=== PATIENT | male | born 1965 | race Caucasian/White ===

== ENCOUNTER 2018-07-21 16:46 | Outpatient (CLI) | payer OTHER ==
[~2018-07-21 16:46] MED LIST: GILTUSS TR TAB1 EACH PO; TOBREX5 ML OP; ZITHROMAX TRI-500 MG PO; ZYRTEC10 MG PO
== END 2018-07-21 17:12 | disposition home or self-care (01) ==
LOC: LAB 16:46
DX: E11.9 Type 2 diabetes mellitus without complications (principal); E03.8 Other specified hypothyroidism; E78.2 Mixed hyperlipidemia; R31.9 Hematuria, unspecified; N20.0 Calculus of kidney; N30.00 Acute cystitis without hematuria; E29.1 Testicular hypofunction; R97.20 Elevated prostate specific antigen [PSA]

== ENCOUNTER → 2018-07-22 | Outpatient (CLI) | payer OTHER | END | disposition home or self-care (01) | LOC: MRI 09:00 | DX: G43.909 Migraine, unspecified, not intractable, without status migrainosus (principal); R41.2 Retrograde amnesia; N20.0 Calculus of kidney | CPT/HCPCS: 70551 ==

== ENCOUNTER → 2018-08-05 | Outpatient (CLI) | payer OTHER | END | disposition home or self-care (01) | LOC: NUCLEAR 09:00 | DX: I10 Essential (primary) hypertension (principal); R94.31 Abnormal electrocardiogram [ECG] [EKG]; R07.89 Other chest pain ==

== ENCOUNTER 2018-08-15 08:04 | Outpatient (CLI) | payer OTHER | END 2018-08-15 08:12 | disposition home or self-care (01) | LOC: NUCLEAR 08:04 | DX: I10 Essential (primary) hypertension (principal); I25.10 Atherosclerotic heart disease of native coronary artery without angina pectoris | CPT/HCPCS: 78452; 93017; A9500 ==

== ENCOUNTER 2018-08-22 12:27 | Day surgery (SDC) | payer OTHER ==
[2018-08-24] MEDS ORDERED: TRAMADOL HCL50 MG PO (02:15)
== END 2018-08-22 16:45 | disposition home or self-care (01) ==
LOC: CIR LITO 12:27
DX: N20.1 Calculus of ureter (principal)

== ENCOUNTER → 2018-08-23 | Emergency (ER) | payer OTHER ==
[~2018-08-23] VITALS: Ht 175.3 cm; Wt 87.5 kg
[~2018-08-23] MED LIST changes: +TRAMADOL HCL50 MG PO
== END | disposition home or self-care (01) ==
LOC: ER 19:16
DX: N23 Unspecified renal colic (principal)

== ENCOUNTER 2018-09-01 07:42 | Outpatient (CLI) | payer OTHER | END 2018-09-01 07:47 | disposition home or self-care (01) | LOC: RAD 07:42 | DX: N20.0 Calculus of kidney (principal) ==

== ENCOUNTER 2018-09-01 08:55 | Day surgery (SDC) | payer OTHER | END 2018-09-01 16:05 | disposition home or self-care (01) | LOC: CIR.AMB 08:55 | DX: N20.1 Calculus of ureter (principal) ==

== ENCOUNTER 2018-11-07 07:53 | Outpatient (CLI) | payer OTHER | END 2018-11-07 08:08 | disposition home or self-care (01) | LOC: SONOGRAMA 07:53 | DX: E04.1 Nontoxic single thyroid nodule (principal) ==

== ENCOUNTER → 2019-01-19 | Outpatient (CLI) | payer OTHER | END | disposition home or self-care (01) | LOC: SONOGRAMA 14:26 | DX: S74.02XA Injury of sciatic nerve at hip and thigh level, left leg, initial encounter (principal) ==

== ENCOUNTER 2019-10-27 16:42 | Outpatient (CLI) | payer OTHER | END 2019-10-27 17:11 | disposition home or self-care (01) | LOC: LAB 16:42 | DX: N20.0 Calculus of kidney (principal); R97.20 Elevated prostate specific antigen [PSA]; I10 Essential (primary) hypertension; E11.9 Type 2 diabetes mellitus without complications; E03.8 Other specified hypothyroidism; E78.2 Mixed hyperlipidemia; M81.0 Age-related osteoporosis without current pathological fracture; N40.0 Benign prostatic hyperplasia without lower urinary tract symptoms ==

== ENCOUNTER 2019-10-28 14:53 | Outpatient (CLI) | payer OTHER | END 2019-10-28 16:09 | disposition home or self-care (01) | LOC: SONOGRAMA 14:53 | DX: R97.20 Elevated prostate specific antigen [PSA] (principal); N20.0 Calculus of kidney ==

== ENCOUNTER 2021-01-20 08:00 | Outpatient (CLI) | payer OTHER | END 2021-01-20 15:00 | disposition home or self-care (01) | LOC: LAB 08:00 | PROVIDERS: ATTEND Urology | DX: N20.0 Calculus of kidney (principal); E29.1 Testicular hypofunction; R97.20 Elevated prostate specific antigen [PSA]; Z00.8 Encounter for other general examination; Z12.5 Encounter for screening for malignant neoplasm of prostate; N52.8 Other male erectile dysfunction; R03.0 Elevated blood-pressure reading, without diagnosis of hypertension; E66.8 Other obesity; E55.9 Vitamin D deficiency, unspecified ==

== ENCOUNTER 2021-01-24 14:44 | Outpatient (CLI) | payer OTHER | END 2021-01-24 15:24 | disposition home or self-care (01) | LOC: RAD 14:44 | PROVIDERS: ATTEND Urology | DX: N20.0 Calculus of kidney (principal); R31.1 Benign essential microscopic hematuria ==

== ENCOUNTER → 2022-04-06 15:21 | Outpatient (CLI) | payer OTHER | END | disposition home or self-care (01) | LOC: LAB 04-05 16:10 | PROVIDERS: ATTEND Internal Medicine Cardiovascular Disease | DX: I10 Essential (primary) hypertension (principal); E11.9 Type 2 diabetes mellitus without complications; E03.9 Hypothyroidism, unspecified; E78.2 Mixed hyperlipidemia; E55.9 Vitamin D deficiency, unspecified; N40.0 Benign prostatic hyperplasia without lower urinary tract symptoms; N20.0 Calculus of kidney; R97.20 Elevated prostate specific antigen [PSA]; R31.1 Benign essential microscopic hematuria ==

== ENCOUNTER 2022-04-12 12:00 | Outpatient (CLI) | payer OTHER | END 2022-04-12 14:00 | disposition home or self-care (01) | LOC: SONOGRAMA 12:00 | PROVIDERS: ATTEND Urology | DX: N20.0 Calculus of kidney (principal); R31.1 Benign essential microscopic hematuria ==

== ENCOUNTER 2022-04-26 07:31 | Outpatient (CLI) | payer OTHER | END 2022-04-26 15:13 | disposition home or self-care (01) | LOC: TOM 07:31 | PROVIDERS: ATTEND Urology | DX: R10.32 Left lower quadrant pain (principal) ==

== ENCOUNTER → 2022-10-30 14:34 | Outpatient (CLI) | payer OTHER | END | disposition home or self-care (01) | LOC: LAB 10-29 16:43 | PROVIDERS: ATTEND Internal Medicine Cardiovascular Disease | DX: E11.8 Type 2 diabetes mellitus with unspecified complications (principal); I10 Essential (primary) hypertension; E03.8 Other specified hypothyroidism; E78.2 Mixed hyperlipidemia; N40.1 Benign prostatic hyperplasia with lower urinary tract symptoms; E55.9 Vitamin D deficiency, unspecified ==

== ENCOUNTER 2022-10-30 15:43 | Outpatient (CLI) | payer OTHER | END 2022-10-30 15:54 | disposition home or self-care (01) | LOC: RAD 15:43 | PROVIDERS: ATTEND Urology | DX: N20.1 Calculus of ureter (principal); R31.1 Benign essential microscopic hematuria ==

== ENCOUNTER 2022-10-31 15:00 | Outpatient (CLI) | payer OTHER | END 2022-10-31 15:14 | disposition home or self-care (01) | LOC: SONOGRAMA 15:00 | PROVIDERS: ATTEND Urology | DX: N20.1 Calculus of ureter (principal); R31.1 Benign essential microscopic hematuria ==

== ENCOUNTER 2023-06-04 07:34 | Outpatient (CLI) | payer OTHER | END 2023-06-04 07:35 | disposition home or self-care (01) | LOC: LAB 07:34 | PROVIDERS: ATTEND Urology | DX: N00.0 Acute nephritic syndrome with minor glomerular abnormality (principal); D72.829 Elevated white blood cell count, unspecified ==

== ENCOUNTER 2024-05-01 15:06 | Outpatient (CLI) | payer OTHER ==
[2024-05-01 17:13] LABS: URINE APPEARANCE Clear; URINE BILIRRUBIN Negative (NEGATIVE); URINE BLOOD Small; URINE COLOR Yellow; URINE GLUCOSE Negative (NEGATIVE); URINE KETONE Negative (NEGATIVE); URINE LEUKOCYTE Trace; URINE NITRATE Negative; URINE PROTEIN Negative (NEGATIVE); URINE UROBILINOGEN 0.2 E.U./dl
[2024-05-01 17:16] LABS: URINE BACTERIA 8.8 uL (0.0-1933); URINE EPITHELIAL CELLS 2.7 uL (0.0-38.8); URINE WBC 16.3 uL (0.0-23.2)
[2024-05-01 17:21] LABS: HEMATOCRIT 43.5 % (39.0-48.0); HEMOGLOBIN 14.9 g/dL (13-16.00); MEAN CELL VOLUME 87.3 fL (80.0-100.00); MEAN CORPUSCULAR HGB CONC 34.4 g/dl (32.0-36.0); PLATELET COUNT 324 K/uL (150-450); RED BLOOD COUNT 4.98 M/uL (4.00-6.00); RED CELL DISTRIBUTION WIDTH 13.2 % (11.5-14.5)
[2024-05-01 17:55] LABS: CALCIUM 9.2 mg/dL (8.5-10.1); CHOL HDL RATIO 3.8 (0-5.0); CREATININE SERUM 1.6 mg/dL (0.70-1.30); GFR 44.77; POTASSIUM 4.27 mEq/L (3.5-5.1); TOTAL PROTEIN 7.2 gm/dL (6.4-8.2)
[2024-05-01 17:56] LABS: BILIRUBIN TOTAL 1.01 mg/dL (0.3-1.2); GLOBULINA 3.2 G/DL (2.4-3.5); PROSTATIC SPECIFIC ANTIGEN 1.14 NG/ML (0.010-4.00); TSH 1.12 uIU/mL (0.358-3.74)
== END 2024-05-01 15:27 | disposition home or self-care (01) ==
LOC: LAB 15:06
PROVIDERS: ATTEND Urology
DX: R97.20 Elevated prostate specific antigen [PSA] (principal); R31.1 Benign essential microscopic hematuria; E29.1 Testicular hypofunction; E03.9 Hypothyroidism, unspecified; R73.9 Hyperglycemia, unspecified; E55.9 Vitamin D deficiency, unspecified

== ENCOUNTER 2024-05-01 15:37 | Outpatient (CLI) | payer OTHER | END 2024-05-01 15:53 | disposition home or self-care (01) | LOC: RAD 15:37 → SONOGRAMA 15:37 | PROVIDERS: ATTEND Urology | DX: R31.1 Benign essential microscopic hematuria (principal); N20.0 Calculus of kidney ==

== ENCOUNTER 2024-05-08 16:15 | Outpatient (CLI) | payer OTHER | END 2024-05-08 16:20 | disposition home or self-care (01) | LOC: TOM 16:15 | PROVIDERS: ATTEND Urology | DX: N20.1 Calculus of ureter (principal) ==

== ENCOUNTER 2024-05-13 16:59 | Outpatient (CLI) | payer OTHER ==
[2024-05-13 18:15] LABS: INR 1.05; PARTIAL THROMBOPLASTIN TIME 29.7 SECONDS (22.0-34.0); PROTHROMBIN TIME 11.4 SECONDS (9.0-11.5)
== END 2024-05-13 18:15 | disposition home or self-care (01) ==
LOC: LAB 16:59
PROVIDERS: ATTEND Urology
DX: R31.0 Gross hematuria (principal); N20.1 Calculus of ureter; N20.0 Calculus of kidney

== ENCOUNTER 2024-06-12 17:52 | Outpatient (CLI) | payer OTHER | END 2024-06-12 17:58 | disposition home or self-care (01) | LOC: RAD 17:52 | DX: N20.0 Calculus of kidney (principal) ==

== ENCOUNTER → 2024-06-26 | Outpatient (CLI) | payer OTHER ==
[2024-06-26 17:59] LABS: URINE APPEARANCE Clear; URINE BILIRRUBIN Negative (NEGATIVE); URINE BLOOD Small; URINE COLOR Yellow; URINE GLUCOSE Negative (NEGATIVE); URINE KETONE Negative (NEGATIVE); URINE LEUKOCYTE Negative; URINE NITRATE Negative; URINE PROTEIN Trace (NEGATIVE); URINE UROBILINOGEN 0.2 E.U./dl
[2024-06-26 18:03] LABS: URINE BACTERIA 6.2 uL (0.0-1933); URINE EPITHELIAL CELLS 2.6 uL (0.0-38.8); URINE RBC 13.1 uL (0.0-20.8); URINE WBC 11.4 uL (0.0-23.2)
[2024-06-26 18:16] LABS: URINE CAST 0.45 uL (0.0-1.40); URINE SPERM MODERATE
== END | disposition home or self-care (01) ==
LOC: LAB 17:19
PROVIDERS: ATTEND Urology
DX: N20.1 Calculus of ureter (principal); R31.1 Benign essential microscopic hematuria

== ENCOUNTER 2024-07-22 15:23 | Outpatient (CLI) | payer OTHER | END 2024-07-22 15:33 | disposition home or self-care (01) | LOC: SONOGRAMA 15:23 | PROVIDERS: ATTEND Urology | DX: N20.1 Calculus of ureter (principal); R31.1 Benign essential microscopic hematuria ==